=== PATIENT | female | born 1995 | race Caucasian/White ===

== ENCOUNTER 2021-07-06 20:14 | Emergency (ER) | payer MEDICAID ==
[~2021-07-06] VITALS: Ht 154.9 cm; Wt 63.5 kg
[2021-07-06 20:21] VITALS: BP 109/70
--- NOTE | 2021-07-06 20:21 | NUR ---
TO BED AMBULATORY
--- NOTE | 2021-07-06 20:40 | NUR ---
25 Y/O F BIB SELF WITH C/O ALLERGIC REACTION. PT TOOK CEPHLEXIN AND BACTRIM AROUND [id number] AND BEGAN TO GET ITCHY AND REDNESS ON HER CHEST AREA. PT SAYS IT FEELS LIKE IT STINGS. PT DENIES N/V/F/COUGH/DIARRHEA. PT DOES SAYS BECAUSE HER CHEST IS ITCHY IT DOES FEEL HARD TO BREATH BUT SP02 IS NORMAL. PT SAID SHE DID NOT KNOW THAT SHE WAS ALLERGIC TO THE MEDS. PT KNOWN ALLERGIES: PENICILLIN AND PREDNISONE. PAST MEDICAL HX: KNEE INFECTION (PRIOR MEDS GIVEN FOR THAT WHICH SHE HAD A REACTION TO)
[2021-07-06] MEDS ORDERED: FAMOTIDINE 20 MG TAB PO ONE (20:55)
--- NOTE | 2021-07-06 22:08 | NUR ---
DR. BORJAS AT BEDSIDE FOR REEVALUATION
[2021-07-06] MEDS ORDERED: DIPH25TA53 PO (22:21)
[2021-07-06] MEDS ORDERED: CLIN300C52 PO (22:21)
[2021-07-06 22:34] VITALS: BP 109/68
--- NOTE | 2021-07-06 22:37 | NUR ---
PT LEFT W/O DISCHARGE PAPERS.PT BECAME INPATIENT WITH WAITING FOR PAPER WORK SO SHE LEFT
--- NOTE | 2021-07-06 22:39 | NUR ---
The patient's care was reviewed and supervised by Edyta Baer RN.
== END 2021-07-06 22:30 | disposition home or self-care (01) ==
LOC: MED 20:14
DX: T78.40XA Allergy, unspecified, initial encounter (principal); Z88.0 Allergy status to penicillin; Z79.899 Other long term (current) drug therapy; X58.XXXA Exposure to other specified factors, initial encounter
CPT/HCPCS: 99283; Q0163